=== PATIENT | female | born 2000 | race Two or more races ===

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

== ENCOUNTER 2021-12-22 03:26 | Emergency (ER) | payer OTHER ==
[2021-12-22 03:50] VITALS: BP 98/62; PULSE 95; TEMP 98.2; BMI 18.9
[2021-12-22 04:34] VITALS: RESP 18
[2021-12-22] MEDS ORDERED: ACETAMINOPHEN 325 MG TABLET (FP) PO ONE (04:40)
[2021-12-22] MEDS ORDERED: FAMOTIDINE 20 MG TABLET PO ONE (04:50)
[2021-12-22] MEDS ORDERED: ACETAMINOPHEN 325 MG TABLET (FP) ONE (04:58)
[2021-12-22] MEDS ORDERED: FAMOTIDINE 20 MG TABLET ONE (04:58)
[2021-12-22 06:04] LABS: BASO % 0.4 % (0-2.0); EOS % 1.6 % (0-4.5); HEMATOCRIT 30.5 % (32.4-45.2); HEMOGLOBIN 10.6 GM/dL (10.7-15.3); LYMPH % 51.2 % (8-40); MCH 28.5 pg (25.7-33.7); MCHC 34.7 g/dl (32.0-36.0); MEAN CELL VOLUME 82.2 fl (80-96); MEAN PLT VOLUME 7.1 fl (7.5-11.1); MONO % 9.8 % (3.8-10.2); PLATELET COUNT 213 10^3/uL (134-434); RBC 3.72 M/mm3 (3.60-5.2); WHITE BLOOD COUNT 5.5 K/mm3 (4.0-10.0)
[2021-12-22 06:27] LABS: ALBUMIN 3.2 g/dl (3.4-5.0); BLOOD UREA NITROGEN 7.8 mg/dL (7-18); CALCIUM 8.3 mg/dL (8.5-10.1)
[2021-12-22 06:29] LABS: CREATININE 0.4 mg/dL (0.55-1.3)
[2021-12-22 06:32] LABS: BILIRUBIN,TOTAL 0.4 mg/dL (0.2-1); TOT PROT 5.8 g/dl (6.4-8.2)
== END 2021-12-22 06:43 | disposition home or self-care (01) ==
LOC: JER 03:26
DX: R07.89 Other chest pain (principal)
CPT/HCPCS: 36415; 80053; 84702; 85025; 99283-25

== ENCOUNTER 2022-01-25 21:52 | Emergency (ER) | payer OTHER ==
[2022-01-25 22:00] VITALS: BP 106/63; PULSE 92; RESP 18; TEMP 97.6; BMI 19.1
[2022-01-25] MEDS ORDERED: ACETAMINOPHEN 500 MG TABLET (FP) PO ONE (22:31)
[2022-01-25] MEDS ORDERED: LIDOCAINE 5% TOPICAL PATCH TP ONE (22:32)
[2022-01-25] MEDS ORDERED: LIDOCAINE 5% TOPICAL PATCH ONE (22:39)
[2022-01-25] MEDS ORDERED: ACETAMINOPHEN 325 MG TABLET (FP) ONE (22:39)
[2022-01-26] MEDS ORDERED: LIDOCAINE PATCH REMOVAL MC SCH (11:00)
== END 2022-01-26 00:07 | disposition home or self-care (01) ==
LOC: JER 21:52
DX: O26.892 Other specified pregnancy related conditions, second trimester (principal); M54.50 Low back pain, unspecified; Z3A.19 19 weeks gestation of pregnancy
CPT/HCPCS: 76815; 99283-25

== ENCOUNTER 2022-04-14 01:19 | Emergency (ER) | payer OTHER ==
[2022-04-14 01:44] VITALS: BP 91/59; PULSE 96; RESP 14; TEMP 97.7; BMI 20.7
[2022-04-14] MEDS ORDERED: ACETAMINOPHEN 1000 MG/100 ML BAG IVPB ONE (02:28)
[2022-04-14] MEDS ORDERED: ACETAMINOPHEN INJECTION 100 ML IVPB ONE (02:33)
[2022-04-14 02:55] LABS: EPI CELLS 24 /uL (0-25.1); HYALINE CASTS 4 /uL (0-3.1); PH,URINE 6.5 (5.0-8.0); URINE APPEARANCE CLEAR; URINE BACTERIA 30 /uL (0-1359); URINE BILIRUBIN NEGATIVE (NEGATIVE); URINE COLOR YELLOW; URINE GLUCOSE (UA) NEGATIVE (NEGATIVE); URINE KETONE TRACE (NEGATIVE); URINE LEUK ESTERASE TRACE (NEGATIVE); URINE NITRITE NEGATIVE (NEGATIVE); URINE PROTEIN TRACE (NEGATIVE); URINE RBC 4 /uL (0-23.9); URINE WBC 16 /uL (0-25.8)
== END 2022-04-14 03:47 | disposition home or self-care (01) ==
LOC: JER 01:19
PROC: 3E0333Z Introduction of Anti-inflammatory into Peripheral Vein, Percutaneous Approach (ICD-10-PCS; principal; 2022-04-14)
DX: O26.893 Other specified pregnancy related conditions, third trimester (principal); R10.2 Pelvic and perineal pain; M54.50 Low back pain, unspecified; Z3A.30 30 weeks gestation of pregnancy
CPT/HCPCS: 81003; 87077; 87086; 99284-25

== ENCOUNTER 2022-06-23 08:00 | Inpatient (IN) | payer OTHER ==
[2022-06-23 09:08] VITALS: BMI 21.9
[2022-06-23] MEDS ORDERED: DINOPROSTONE 10 MG VAGINAL SUPPOSITORY VG ONE (09:30)
[2022-06-23] MEDS: ELECTROLYTE-148 SOLN 1,000 ML IV SCH ×2 (10:40→18:25)
[2022-06-23] MEDS ORDERED: PROMETHAZINE HCL 25 MG/1 ML VIAL IVPB PRN (22:23)
[2022-06-23] MEDS ORDERED: BUTORPHANOL TARTRATE 1 MG/ML VIAL IVPB PRN (22:23)
[2022-06-23] MEDS ORDERED: PROMETHAZINE HCL 25 MG/1 ML VIAL ONE (22:44)
[2022-06-23] MEDS ORDERED: BUTORPHANOL TARTRATE 1 MG/ML VIAL ONE (22:44)
[2022-06-24] MEDS ORDERED: AMPICILLIN - 2 GM in SODIUM CHLORIDE 100 ML IVPB ONE (07:40)
[2022-06-24] MEDS ORDERED: AMPICILLIN SODIUM 2 GM VIAL ONE (07:59)
[2022-06-24] MEDS ORDERED: OXYTOCIN 30 UNITS in 0.9% NS 30 UNIT/500 ML INFUS.BAG IVPB ONE (08:42)
[2022-06-24] MEDS: OXYTOCIN 30 UNITS in 0.9% NS 30 UNIT/500 ML INFUS.BAG IVPB SCH (08:49)
[2022-06-24 09:40] LABS: INR 0.94 (0.83-1.09); PROTHROMBIN TIME (PATIENT) 10.9 SEC (9.7-13.0)
[2022-06-24 09:43] LABS: ACTIVATED PTT 27.2 SECONDS (25.2-36.5)
[2022-06-24] MEDS ORDERED: FENTANYL/BUPIVACAINE/NS/PF - PCEA - 50 ML DISP.SYRIN EP ONE ×4 (10:08→22:23)
[2022-06-24] MEDS ORDERED: FENTANYL CITRATE/PF 50 MCG/ML VIAL ONE ×2 (10:11→13:30)
[2022-06-24] MEDS ORDERED: BUPIVACAINE HCL/PF 0.25% (2.5MG/ML) 10 ML VIAL ONE ×3 (10:12→23:26)
[2022-06-24] MEDS ORDERED: LIDO 2%/EPI 1:200000 PRESRVFRE (20 ML SDVIAL) ONE (10:12)
[2022-06-24] MEDS: ELECTROLYTE-148 SOLN 1,000 ML IV SCH ×2 (10:15→21:50)
[2022-06-24] MEDS: FENTANYL/BUPIVACAINE/NS/PF - PCEA - 50 ML DISP.SYRIN EP SCH ×2 (10:30→22:25)
[2022-06-24] MEDS ORDERED: NALOXONE HCL 0.4 MG/ML VIAL IVPUSH PRN (10:34)
[2022-06-24] MEDS ORDERED: AMPICILLIN SODIUM 1 GM VIAL ONE ×3 (11:56→20:46)
[2022-06-24] MEDS: AMPICILLIN - 1 GM in SODIUM CHLORIDE 100 ML IVPB SCH ×3 (12:00→20:50)
[2022-06-25] MEDS: AMPICILLIN - 1 GM in SODIUM CHLORIDE 100 ML IVPB SCH ×4 (00:15→12:29)
[2022-06-25] MEDS ORDERED: AMPICILLIN SODIUM 1 GM VIAL ONE ×2 (00:15→04:21)
[2022-06-25] MEDS ORDERED: FENTANYL/BUPIVACAINE/NS/PF - PCEA - 50 ML DISP.SYRIN EP ONE ×2 (02:43→08:47)
[2022-06-25] MEDS: FENTANYL/BUPIVACAINE/NS/PF - PCEA - 50 ML DISP.SYRIN EP SCH ×2 (02:45→12:27)
[2022-06-25] MEDS ORDERED: OXYTOCIN 20 UNITS in 0.9% NS 20 UNIT/1,000 ML INFUS.BAG IV ONE (03:12)
[2022-06-25] MEDS ORDERED: BUPIVACAINE HCL/PF 0.25% (2.5MG/ML) 10 ML VIAL ONE ×2 (07:09→09:43)
[2022-06-25] MEDS: OXYTOCIN 30 UNITS in 0.9% NS 30 UNIT/500 ML INFUS.BAG IVPB SCH (07:15)
[2022-06-25] MEDS ORDERED: FENTANYL CITRATE/PF 50 MCG/ML VIAL ONE ×2 (09:43→10:19)
[2022-06-25] MEDS ORDERED: AZITHROMYCIN IVPB 500 MG/250 ML BAG IVPB STA (09:45)
[2022-06-25] MEDS ORDERED: METHYLERGONOVINE MALEATE 0.2 MG/1 ML AMP IM PRN (09:46)
[2022-06-25] MEDS ORDERED: ACETAMINOPHEN 325 MG TABLET (FP) PO PRN (09:46)
[2022-06-25] MEDS ORDERED: AZITHROMYCIN IVPB 500 MG/250 ML BAG IVPB ONE (09:53)
[2022-06-25] MEDS ORDERED: LIDO 2%/EPI 1:200000 PRESRVFRE (20 ML SDVIAL) ONE (10:19)
[2022-06-25] MEDS ORDERED: MISOPROSTOL 200 MCG TABLET ONE (10:33)
[2022-06-25] MEDS ORDERED: ceFAZolin SODIUM 1 GM VIAL ONE (10:36)
[2022-06-25] MEDS ORDERED: OXYTOCIN 10 UNITS/ML VIAL ONE ×2 (10:41→10:53)
[2022-06-25] MEDS ORDERED: morphine SULFATE/PF 1 MG/2 ML (2cc Syringe - QUVA) ONE (11:28)
[2022-06-25] MEDS ORDERED: CARBOPROST TROMETHAMINE 250 MCG/ML AMPUL IM ONE (11:30)
[2022-06-25] MEDS ORDERED: MISOPROSTOL 100 MCG TABLET PV ONE (11:33)
[2022-06-25] MEDS: OXYTOCIN 20 UNITS in 0.9% NS 20 UNIT/1,000 ML INFUS.BAG IV SCH ×2 (11:45→17:05)
[2022-06-25] MEDS: ELECTROLYTE-148 SOLN 1,000 ML IV SCH (12:27)
[2022-06-25 12:30] LABS: CORD BASE EXCESS -5.9 mmol/L (0-2); CORD PCO2 40.9 mmHg (30-78); CORD pH 7.307 (7.14-7.44)
[2022-06-25] MEDS: METHYLERGONOVINE MALEATE 0.2 MG TABLET (FP) PO SCH ×3 (15:38→23:24)
[2022-06-25] MEDS ORDERED: CEFAZOLIN 1 GM in DEXTROSE 5%-WATER - 50 ML IVPB ONE (18:00)
[2022-06-25] MEDS: SIMETHICONE 80 MG TAB.CHEW (FP) PO PRN ×2 (19:14→23:24)
[2022-06-25] MEDS ORDERED: oxyCODONE HCL 5 MG TABLET PO PRN (21:46)
[2022-06-26] MEDS: METHYLERGONOVINE MALEATE 0.2 MG TABLET (FP) PO SCH ×2 (03:51→07:53)
[2022-06-26] MEDS: SIMETHICONE 80 MG TAB.CHEW (FP) PO PRN ×3 (03:51→23:45)
[2022-06-26 06:27] LABS: BASO % 0.1 % (0-2.0); HEMATOCRIT 27.4 % (32.4-45.2); HEMOGLOBIN 9.7 GM/dL (10.7-15.3); LYMPH % 8.7 % (8-40); MCH 24.8 pg (25.7-33.7); MCHC 35.4 g/dl (32.0-36.0); MEAN PLT VOLUME 7.8 fl (7.5-11.1); NEUT % 84.2 % (42.8-82.8); PLATELET COUNT 145 10^3/uL (134-434); RBC 3.92 M/mm3 (3.60-5.2); RDW 16.5 % (11.6-15.6); WHITE BLOOD COUNT 15.6 K/mm3 (4.0-10.0)
[2022-06-26] MEDS ORDERED: BISACODYL 10 MG SUPP.RECT RC PRN (09:46)
[2022-06-26] MEDS: IBUPROFEN 600 MG TABLET (FP) PO PRN ×2 (11:31→23:45)
[2022-06-28 07:08] LABS: BASO % 0.3 % (0-2.0); EOS % 2.3 % (0-4.5); HEMATOCRIT 25.3 % (32.4-45.2); LYMPH % 36.6 % (8-40); MCH 24.8 pg (25.7-33.7); MCHC 35.7 g/dl (32.0-36.0); MEAN CELL VOLUME 69.3 fl (80-96); MEAN PLT VOLUME 7.3 fl (7.5-11.1); MONO % 8.3 % (3.8-10.2); NEUT % 52.5 % (42.8-82.8); PLATELET COUNT 230 10^3/uL (134-434); RBC 3.65 M/mm3 (3.60-5.2); RDW 16.8 % (11.6-15.6); WHITE BLOOD COUNT 7.2 K/mm3 (4.0-10.0)
[2022-06-28 08:04] VITALS: BP 115/76; PULSE 64; RESP 16; TEMP 97.8
== END 2022-06-28 14:05 | disposition home or self-care (01) | DRG 540 ==
LOC: JLDR 08:00 → J3W 06-25 13:26
PROVIDERS: ADMIT Obstetrics & Gynecology; ATTEND Obstetrics & Gynecology
PROC: 3E0P7VZ Introduction of Hormone into Female Reproductive, Via Natural or Artificial Opening (ICD-10-PCS; 2022-06-23)
PROC: 10D00Z1 Extraction of Products of Conception, Low, Open Approach (ICD-10-PCS; principal; 2022-06-25)
DX: O62.1 Secondary uterine inertia (principal); O61.9 Failed induction of labor, unspecified; Z3A.40 40 weeks gestation of pregnancy; O99.824 Streptococcus B carrier state complicating childbirth; Z37.0 Single live birth
CPT/HCPCS: 36415; 36600; 82803; 85025; 85610; 85730; 88307-TC; 94010

== ENCOUNTER 2023-01-16 19:45 | Observation (INO) | payer OTHER ==
[2023-01-16] MEDS ORDERED: IBUPROFEN 400 MG TABLET (FP) PO ONE ×2 (20:05→20:21)
[2023-01-16] MEDS ORDERED: LACTATED RINGERS SOLUTION 1000 ML INFUS.BAG IV ONE ×2 (20:21→22:32)
[2023-01-16 20:33] LABS: BASO % 0.2 % (0-2.0); EOS % 0.5 % (0-4.5); HEMATOCRIT 39.9 % (32.4-45.2); HEMOGLOBIN 13.6 GM/dL (10.7-15.3); LYMPH % 13.5 % (8-40); MCH 25.8 pg (25.7-33.7); MEAN PLT VOLUME 7.6 fl (7.5-11.1); MONO % 5.5 % (3.8-10.2); NEUT % 80.3 % (42.8-82.8); PLATELET COUNT 266 10^3/uL (134-434); RBC 5.26 M/mm3 (3.60-5.2); WHITE BLOOD COUNT 8.4 K/mm3 (4.0-10.0)
[2023-01-16 20:48] LABS: INR 1.2 (0.83-1.09); PROTHROMBIN TIME (PATIENT) 13.9 SEC (9.7-13.0)
[2023-01-16 20:50] LABS: POTASSIUM 3.6 mmol/L (3.5-5.1)
[2023-01-16 20:51] LABS: ACTIVATED PTT 29.3 SECONDS (25.2-36.5)
[2023-01-16 20:52] LABS: ALBUMIN 4.1 g/dl (3.4-5.0); BLOOD UREA NITROGEN 10.4 mg/dL (7-18); CALCIUM 8.8 mg/dL (8.5-10.1)
[2023-01-16 20:56] LABS: CREATININE 0.8 mg/dL (0.55-1.3)
[2023-01-16 20:57] LABS: BILIRUBIN,TOTAL 0.8 mg/dL (0.2-1); TOT PROT 7.1 g/dl (6.4-8.2)
[2023-01-16] MEDS ORDERED: ONDANSETRON 4 MG/2 ML VIAL IVPUSH ONE (21:14)
[2023-01-16] MEDS ORDERED: ONDANSETRON 4 MG/2 ML VIAL ONE (21:16)
[2023-01-16 21:48] LABS: PH,URINE 5.5 (5.0-8.0); URINE APPEARANCE CLEAR; URINE BILIRUBIN NEGATIVE (NEGATIVE); URINE COLOR YELLOW; URINE GLUCOSE (UA) NEGATIVE (NEGATIVE); URINE KETONE NEGATIVE (NEGATIVE); URINE LEUK ESTERASE NEGATIVE (NEGATIVE); URINE NITRITE NEGATIVE (NEGATIVE); URINE PROTEIN NEGATIVE (NEGATIVE); URINE UROBILINOGEN 0.2 mg/dL (0.2-1.0)
[2023-01-16] MEDS ORDERED: ACETAMINOPHEN 500 MG TABLET (FP) PO ONE (22:33)
[2023-01-16] MEDS ORDERED: ACETAMINOPHEN 1000 MG/100 ML BAG IVPB ONE (22:34)
[2023-01-16] MEDS ORDERED: METOCLOPRAMIDE HCL INJECTION 10 MG/2 ML VIAL IVPUSH ONE (22:34)
[2023-01-16] MEDS ORDERED: ACETAMINOPHEN INJECTION 100 ML IVPB ONE (22:35)
[2023-01-16] MEDS ORDERED: METOCLOPRAMIDE HCL INJECTION 10 MG/2 ML VIAL ONE (22:35)
[2023-01-16] MEDS ORDERED: ENOXAPARIN NA (PORCINE) 40 MG/0.4 ML DISP.SYRIN SQ ONE (23:13)
[2023-01-16] MEDS ORDERED: ENOXAPARIN NA (PORCINE) 100 MG/1 ML DISP.SYRIN SQ ONE (23:47)
[2023-01-16] MEDS ORDERED: DOCUSATE SODIUM 100 MG CAPSULE (FP) PO PRN (23:55)
[2023-01-17 04:35] VITALS: BMI 20.6
[2023-01-17] MEDS ORDERED: ACETAMINOPHEN 1000 MG/100 ML BAG IVPB PRN (06:52)
[2023-01-17 07:57] LABS: BASO % 0.4 % (0-2.0); EOS % 0.5 % (0-4.5); HEMATOCRIT 35.2 % (32.4-45.2); HEMOGLOBIN 12.1 GM/dL (10.7-15.3); LYMPH % 13.2 % (8-40); MCH 26.4 pg (25.7-33.7); MCHC 34.5 g/dl (32.0-36.0); MEAN CELL VOLUME 76.3 fl (80-96); MEAN PLT VOLUME 7.9 fl (7.5-11.1); MONO % 3.3 % (3.8-10.2); NEUT % 82.6 % (42.8-82.8); PLATELET COUNT 242 10^3/uL (134-434); RBC 4.61 M/mm3 (3.60-5.2); RDW 16.9 % (11.6-15.6); WHITE BLOOD COUNT 10.1 K/mm3 (4.0-10.0)
[2023-01-17 08:00] LABS: POTASSIUM 4.3 mmol/L (3.5-5.1)
[2023-01-17 08:06] LABS: CALCIUM 8.5 mg/dL (8.5-10.1)
[2023-01-17 08:07] LABS: BLOOD UREA NITROGEN 7.6 mg/dL (7-18)
[2023-01-17 08:10] LABS: CREATININE 0.7 mg/dL (0.55-1.3)
[2023-01-17] MEDS: ENOXAPARIN NA (PORCINE) 60 MG/0.6 ML DISP.SYRIN SQ SCH ×2 (10:18→21:37)
[2023-01-17] MEDS ORDERED: LACTATED RINGERS SOLUTION 1,000 ML/1,000 ML INFUS.BAG IV SCH (12:15)
[2023-01-17 14:34] LABS: ERYTHROCYTE SEDIMENTATION RATE 3 mm/hr (0-20)
[2023-01-17 18:14] VITALS: RESP 18
[2023-01-18 06:49] LABS: BASO % 0.7 % (0-2.0); EOS % 2.5 % (0-4.5); HEMOGLOBIN 11.8 GM/dL (10.7-15.3); LYMPH % 52.9 % (8-40); MCH 26.5 pg (25.7-33.7); MCHC 34.7 g/dl (32.0-36.0); MEAN CELL VOLUME 76.4 fl (80-96); NEUT % 33.9 % (42.8-82.8); PLATELET COUNT 244 10^3/uL (134-434); RBC 4.46 M/mm3 (3.60-5.2); RDW 17.3 % (11.6-15.6); WHITE BLOOD COUNT 5.3 K/mm3 (4.0-10.0)
[2023-01-18 07:04] LABS: POTASSIUM 3.8 mmol/L (3.5-5.1)
[2023-01-18 07:06] LABS: CALCIUM 8.5 mg/dL (8.5-10.1)
[2023-01-18 07:07] LABS: BLOOD UREA NITROGEN 7.3 mg/dL (7-18); MAGNESIUM 2.1 mg/dL (1.8-2.4)
[2023-01-18 07:10] LABS: CREATININE 0.7 mg/dL (0.55-1.3); PHOSPHOROUS 4.4 mg/dL (2.5-4.9)
[2023-01-18] MEDS ORDERED: ENOXAPARIN NA (PORCINE) 40 MG/0.4 ML DISP.SYRIN SQ SCH (10:00)
[2023-01-18] MEDS: ENOXAPARIN NA (PORCINE) 60 MG/0.6 ML DISP.SYRIN SQ SCH (10:02)
[2023-01-18 10:12] VITALS: BP 114/72; PULSE 83; TEMP 98.2
[2023-01-18 11:35] LABS: N-TERMINAL BNP 268.5 pg/ml (5-125)
== END 2023-01-18 13:13 | disposition home or self-care (01) ==
LOC: JER 19:45 → JERBED 23:15 → J4S 01-17 03:58
PROVIDERS: ADMIT Internal Medicine; ATTEND Family Medicine
PROC: 3E023GC Introduction of Other Therapeutic Substance into Muscle, Percutaneous Approach (ICD-10-PCS; principal; 2023-01-16)
PROC: 3E0337Z Introduction of Electrolytic and Water Balance Substance into Peripheral Vein, Percutaneous Approach (ICD-10-PCS; 2023-01-16)
PROC: 3E033GC Introduction of Other Therapeutic Substance into Peripheral Vein, Percutaneous Approach (ICD-10-PCS; 2023-01-16)
DX: R07.89 Other chest pain (principal); R79.9 Abnormal finding of blood chemistry, unspecified; D64.9 Anemia, unspecified; R50.9 Fever, unspecified
CPT/HCPCS: 0241U-QW; 36415; 71046-TC-FY; 71275-TC; 80048; 80053; 81003; 83735; 83880; 84100; 84484; 84703; 85025; 85379; 85610; 85651; 85730; 86140; 87086; 93005; 93010; 93970-TC; 96361; 96372; 96374; 96375; 96376; 99285-25; G0378; Q9967

== ENCOUNTER 2024-05-30 07:15 | Inpatient (IN) | payer OTHER ==
[2024-05-30] MEDS ORDERED: ELECTROLYTE-148 SOLN 1,000 ML IV ONE (08:00)
[2024-05-30] MEDS ORDERED: ELECTROLYTE-148 SOLN 1,000 ML IV SCH (08:30)
[2024-05-30] MEDS: LACTATED RINGERS SOLUTION 1,000 ML IV SCH (08:35)
[2024-05-30 08:47] VITALS: BMI 21.6
[2024-05-30] MEDS: CITRIC ACID/SODIUM CITRATE 30 ML UNIT-DOSE CUP PO ONE (09:45)
[2024-05-30] MEDS ORDERED: FENTANYL CITRATE/PF 50 MCG/ML VIAL ONE (09:47)
[2024-05-30] MEDS ORDERED: morphine SULFATE/PF 1 MG/2 ML (2cc Syringe - QUVA) ONE (09:47)
[2024-05-30] MEDS ORDERED: OXYTOCIN 10 UNITS/ML VIAL ONE (10:00)
[2024-05-30] MEDS ORDERED: ceFAZolin SODIUM 1 GM VIAL ONE (10:00)
[2024-05-30] MEDS ORDERED: DEXAMETHASONE SOD PHOSPHATE 4 MG/1 ML VIAL ONE (10:00)
[2024-05-30] MEDS ORDERED: ONDANSETRON 4 MG/2 ML VIAL ONE (10:00)
[2024-05-30] MEDS: LACTATED RINGERS SOLUTION 500 ML IV ONE (10:22)
[2024-05-30] MEDS ORDERED: KETOROLAC TROMETHAMINE 30 MG/1 ML VIAL ONE (10:41)
[2024-05-30] MEDS: OXYTOCIN 20 UNITS in 0.9% NS 20 UNIT/1,000 ML INFUS.BAG IV SCH (11:15)
[2024-05-30] MEDS ORDERED: OXYTOCIN 20 UNITS in 0.9% NS 20 UNIT/1,000 ML INFUS.BAG IV ONE (11:40)
[2024-05-30] MEDS: IBUPROFEN 800 MG/8 ML IJ IVPB PRN (16:00)
[2024-05-30] MEDS ORDERED: oxyCODONE HCL 5 MG TABLET PO PRN (21:56)
[2024-05-31] MEDS: SIMETHICONE 80 MG TAB.CHEW (FP) PO PRN (01:20)
[2024-05-31 07:45] LABS: ABSOLUTE IMMATURE GRANULOCYTES 0.06 x10^3/uL (0.0-0.031); BASOPHILS # 0.02 x10^3/uL (0.01-0.08); EOSINOPHIL % 0.4 % (0.7-5.8); EOSINOPHILS # 0.05 x10^3/uL (0.04-0.36); HEMATOCRIT 33.8 % (34.1-44.9); HEMOGLOBIN 11.2 g/dL (11.2-15.7); MCHC 33.1 g/dl (32.2-35.5); MEAN CELL VOLUME 77.7 fl (79.4-94.8); MEAN PLT VOLUME 9.9 fl (9.4-12.3); MONOCYTE # 0.79 x10^3/uL (0.24-0.86); PLATELET COUNT 187 x10^3/uL (182-369); RDW 13.3 % (12.1-16.5)
[2024-05-31] MEDS: IBUPROFEN 600 MG TABLET (FP) PO PRN (08:18)
[2024-05-31] MEDS: ACETAMINOPHEN 325 MG TABLET (FP) PO PRN (19:40)
[2024-05-31] MEDS: BISACODYL 10 MG SUPP.RECT RC PRN (21:01)
[2024-05-31] MEDS ORDERED: SENNOSIDES 8.6MG TABLET (FP) PO PRN (21:07)
[2024-05-31 22:04] VITALS: RESP 18
[2024-06-02 08:03] LABS: ABSOLUTE IMMATURE GRANULOCYTES 0.02 x10^3/uL (0.0-0.031); BASOPHILS # 0.02 x10^3/uL (0.01-0.08); EOSINOPHIL % 1.4 % (0.7-5.8); EOSINOPHILS # 0.09 x10^3/uL (0.04-0.36); HEMATOCRIT 31.3 % (34.1-44.9); HEMOGLOBIN 10.1 g/dL (11.2-15.7); MCHC 32.3 g/dl (32.2-35.5); MEAN CELL VOLUME 77.5 fl (79.4-94.8); MEAN PLT VOLUME 9.7 fl (9.4-12.3); MONOCYTE # 0.58 x10^3/uL (0.24-0.86); MONOCYTE % 9.3 % (4.7-12.5); PLATELET COUNT 184 x10^3/uL (182-369); RDW 13.2 % (12.1-16.5)
[2024-06-02 09:53] VITALS: BP 107/66; PULSE 55; TEMP 98.1
== END 2024-06-02 13:18 | disposition home or self-care (01) | DRG 540 ==
LOC: JLDR 07:15 → J3W 13:10
PROVIDERS: ADMIT Student in an Organized Health Care Education/Training Program; ATTEND Student in an Organized Health Care Education/Training Program
PROC: 10D00Z1 Extraction of Products of Conception, Low, Open Approach (ICD-10-PCS; principal; 2024-05-30)
DX: O34.211 Maternal care for low transverse scar from previous cesarean delivery (principal); Z3A.39 39 weeks gestation of pregnancy; Z37.0 Single live birth
CPT/HCPCS: 36415; 59409; 80053; 81003; 85025; 85610; 86780; 86850; 86900; 86901; 88305-TC; 88307-TC; 94010